=== PATIENT | male | born 1965 | race Caucasian/White ===

== ENCOUNTER 2022-01-29 13:12 | Outpatient (CLI) | payer OTHER | END 2022-01-29 23:59 | disposition home or self-care (01) | LOC: RAD 13:12 | PROVIDERS: ATTEND Chiropractor | DX: S52.92XA Unspecified fracture of left forearm, initial encounter for closed fracture (principal); M25.422 Effusion, left elbow; M25.421 Effusion, right elbow; M77.32 Calcaneal spur, left foot; X58.XXXA Exposure to other specified factors, initial encounter; Y93.89 Activity, other specified; Y92.89 Other specified places as the place of occurrence of the external cause; Y99.8 Other external cause status | CPT/HCPCS: 73070; 73100; 73120; 73610 ==